=== PATIENT | male | born 1950 | race Caucasian/White ===

== ENCOUNTER 2022-10-05 16:40 | Emergency (ER) | payer OTHER ==
[~2022-10-05] VITALS: Ht 180.3 cm; Wt 73.5 kg
[~2022-10-05 16:40] MED LIST: GABA-531 PO; GLIP10TA11 PO; LOSA1TAB37 PO; METF1000 PO; OMEP40CA20 PO; SIMV10TA97 PO
[2022-10-05 16:51] VITALS: BP_SYST 149; PULSE 67; RESP 18; TEMP 98.3; O2SAT 95
[2022-10-05] MEDS ORDERED: PIPERACILLIN/TAZO 3.375 GM in NS 50 ML IV ONE (19:30)
[2022-10-05] MEDS ORDERED: PIPERACILLIN/TAZOBACTAM 3.375 GM/VIAL (ZOSYN) IV ONE (20:05)
[2022-10-05] MEDS ORDERED: NAPR-690 PO (21:17)
[2022-10-05] MEDS ORDERED: CEPH-548 PO (21:17)
[2022-10-05 21:21] VITALS: BP_SYST 132; PULSE 70; RESP 16; TEMP 98.3; O2SAT 98
== END 2022-10-05 21:21 | disposition home or self-care (01) ==
LOC: SED 16:40
DX: E11.621 Type 2 diabetes mellitus with foot ulcer (principal); E11.9 Type 2 diabetes mellitus without complications; I10 Essential (primary) hypertension; Z79.899 Other long term (current) drug therapy
CPT/HCPCS: 99284; 96365; 87040; 36415; 73660; 83605; J2543